=== PATIENT | female | born 2000 | race Caucasian/White ===

== ENCOUNTER 2021-08-19 10:15 | Outpatient (REF) | payer MEDICARE, MEDICAID, SELFPAY ==
--- NOTE | ~2021-08-19 | XR_ITS ---
EXAMINATION: XR CHEST CLINICAL INFORMATION: Asthma unspecified with acute exacerbation COMPARISON: None TECHNIQUE: 2 views of the chest were obtained. FINDINGS: No significant abnormality is noted involving the heart, lungs, mediastinum, bony thorax or soft tissues. XR/XR chest 2V IMPRESSION: Unremarkable examination.
[2021-08-19 15:02] LABS: Influenza A PCR NEGATIVE (Negative); Influenza B PCR NEGATIVE (Negative); Resp Syncy Virus RNA Qual PCR NEGATIVE (Negative); SARS COV2 PCR INHOUSE NEGATIVE (Negative)
== END 2021-08-19 10:16 | disposition home or self-care (01) ==
LOC: HO.HMGCX 10:15
PROVIDERS: PCP Student in an Organized Health Care Education/Training Program; Visit Provider Physician Assistant Medical
DX: Z20.822 Contact with and (suspected) exposure to COVID-19 (principal); J45.901 Unspecified asthma with (acute) exacerbation; R05.9 Cough, unspecified; J06.9 Acute upper respiratory infection, unspecified
CPT/HCPCS: 0241U; 36415; 71046

== ENCOUNTER 2023-09-08 14:04 | Outpatient (AMB) | payer OTHER, MEDICAID, SELFPAY ==
[2023-09-08 14:15] VITALS: BP 124/78; PULSE 70; O2SAT 99; BMI 29.9
--- NOTE | 2023-09-08 14:15 | MHC.PC.OV ---
Vital Signs 09/08/23 14:15 Height 5 ft 3 in Weight 169 lb 0.6 oz BMI 29.9 BP 124/78 Blood Pressure Location Lt brachial Position Sitting Pulse 70 Pulse Source Pulse Oximeter Pulse Oximetry (%) 99 Oxygen Delivery Method Room Air Intake Visit Reasons: [facility]/08-13/ Bilateral feet pain Intake Note: Patient is here to follow-up after a visit the emergency department at 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 Allergies Beef Containing Products [BEEF CONTAINING PRODUCTS] Allergy (Intermediate, Verified 09/08/23 14:27) SWELLING shrimp Allergy (Intermediate, Verified 09/08/23 14:27) SWELLING Latex, Natural Rubber Allergy (Mild, Verified 09/08/23 14:27) Rash enviromental Allergy (Intermediate, Uncoded 09/08/23 14:27) itch, hives Medication List - Last Reconciled 09/08/23 by ESTEBAN Fan albuterol sulfate 2.5 mg (3 mL) inhalation QID PRN fluticasone propionate 44 mcg/actuation (Flovent HFA) 1 puff PO BID 30 days hydrocortisone 1% (Cortisone (hydrocortisone)) 1 appl topical QID PRN levalbuterol tartrate 45 mcg/actuation 2 puffs inhalation Q4-6H PRN 30 days sertraline 50 mg PO DAILY Tobacco use date assessed: 09/08/23 Dental Screening Did you have a dental visit in the last 12 months?: Yes Did you have a dental problem in the last 6 months where you did not have access to dental care?: No Was dental information given to patient?: Patient has dentist HPI [facility]/08-13/ Bilateral feet pain HPI Details Patient is a 23-year-old female who presents today to follow-up after [facility] Emergency Department visit 08/13/2023 due to bilateral foot pain. Patient of Dr. Lemus. Patient presented to ED with bilateral foot pain right greater than left dorsal aspect with weight-bearing and walking. Patient had bilateral foot x-ray that were negative. Patient was advised to wear supportive shoes and follow-up with Podiatry. Patient is here for podiatry referral. Reports bilateral foot pain for the past 6 months, denies injury. [facility] Medical History Moderate asthma Mild major depression, single episode Surgical History No pertinent past surgical history Family History Mother Mental health disorder Schizophrenia Other Substance use disorder Social History Housing: Apartment Alcohol intake: never Patient Tobacco Use Status: Never used Tobacco e-Cigarette/Vaping Use: Never Used Second Hand Smoke Exposure: No service: No Current occupational status: unemployed Cognitive needs: No Hearing needs: No Vision needs: No Questionnaire Thrive Questionnaire Date Thrive assessed: 07/08/22 AUDIT C Alcohol Use Questionnaire (AUDIT-C) 1. How often do you have a drink containing alcohol?: Never 3. How often do you have six or more drinks on one occasion?: Never Total Score: 0 Score Reviewed/Action Taken: No UMAIR-7 AMB Questionnaire UMAIR-7 Date UMAIR - 7 assessed: 07/08/22 Source: Developed by Drs. Sanket Peguero, Yasmin Crane, Thanh Evans and colleagues, with an educational navid from [employer]. Review of Systems Const Denies body aches, Denies chills, Denies fever(s) and Denies headache(s) ENT Denies dizziness, Denies otalgia, Denies headache(s), Denies nasal discharge, Denies sinus pain and Denies sore throat Card Denies chest pain, Denies edema, Denies lightheadedness and Denies dyspnea Resp Denies cough, Denies dyspnea and Denies wheezing GI Denies abdominal pain Denies dysuria Musc Reports as per HPI and Denies myalgias Skin/Breast Denies rash Neuro Denies dizziness and Denies headache(s) Aller/Immun Denies wheezing Physical exam (Primary Care) Vital Signs: Last Vital Signs Pulse 70 09/08/23 14:15 BP 124/78 09/08/23 14:15 Pulse Ox 99 09/08/23 14:15 Oxygen Delivery Method Room Air 09/08/23 14:15 BMI result Body Mass Index 29.9 Tobacco/Smoking Status: Tobacco use Status Tobacco use date assessed 09/08/23 09/08/23 14:22 Patient Tobacco Use Status Never used Tobacco 09/08/23 14:15 e-Cigarette/Vaping Use Never Used 09/08/23 14:15 Thrive Assessment: Date of Thrive Assessment Date Thrive assessed 07/08/22 09/08/23 14:15 Const General: cooperative and no acute distress Orientation/consciousness: patient oriented x3 HENMT Head: Yes normocephalic and Yes atraumatic Throat: Yes posterior oropharynx normal Eyes General: appearance normal, both eyes and all related structures Neck Neck: Yes normal visual inspection and Yes full ROM Resp Effort & Inspection: normal respiratory effort and able to speak in complete sentences Auscultation: clear to auscultation bilaterally, no crackles, no rales, no rhonchi and no wheezes Cardio Rate: regular rate Rhythm: regular rhythm Heart sounds: S1 normal heart sound present and S2 normal heart sound present Peripheral pulses: dorsalis pedis present bilateral GI Auscultation: normal bowel sounds Skin General skin exam: no rashes or lesions noted Neuro General: patient oriented x3 Gait exam (Neuro): Normal gait present Extrem Other: Bilateral foot normal to inspection, blue nail [place] noted - unable to assess capillary refill, dorsal aspect tender to palpation, full range of motion, skin is intact General: Yes full ROM and No edema Assessment and Plan Assessment & Plan (1) Bilateral foot pain: Code(s): M79.671 - Pain in right foot; M79.672 - Pain in left foot Plan: See HPI for details. Podiatry referral for an evaluation and treatment. Patient can try [id number] ibuprofen 400 mg every 8 hours as needed. Elevate bilateral lower extremity. Encouraged supporting shoes. Patient agreed with the plan Orders: Referrals Podiatry Referral M79.671 - Pain in right foot, M79.672 - Pain in left foot Coding Level of Care Code Est Pt Level 3 (32445) Diagnoses Bilateral foot pain M79.671; M79.672
== END 2023-09-08 14:45 | disposition home or self-care (01) ==
PROVIDERS: PCP Internal Medicine; Visit Provider Nurse Practitioner Family
DX: M79.671 Pain in right foot (principal); M79.672 Pain in left foot
CPT/HCPCS: 99213

== ENCOUNTER 2024-01-13 14:22 | Outpatient (AMB) | payer OTHER, SELFPAY ==
--- NOTE | 2024-01-13 14:29 | MHC.PC.OV ---
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 Accompanied by: Friend Allergies Beef Containing Products [BEEF CONTAINING PRODUCTS] Allergy (Intermediate, Verified 01/13/24 14:46) SWELLING shrimp Allergy (Intermediate, Verified 01/13/24 14:46) SWELLING Latex, Natural Rubber Allergy (Mild, Verified 01/13/24 14:46) Rash enviromental Allergy (Intermediate, Uncoded 01/13/24 14:46) itch, hives Medication List - Last Reconciled 01/13/24 by Fariba Rasmussen MD albuterol sulfate 2.5 mg (3 mL) inhalation QID PRN clonidine HCl 0.1 mg PO BID fluticasone propionate 44 mcg/actuation (Flovent HFA) 1 puff PO BID 30 days fluvoxamine 50 mg PO DAILY levalbuterol tartrate 45 mcg/actuation 2 puffs inhalation Q4-6H PRN 30 days sertraline 50 mg PO DAILY Tobacco use date assessed: 01/13/24 Dental Screening Dental Screen Date: 01/13/24 Did you have a dental visit in the last 12 months?: Yes Did you have a dental problem in the last 6 months where you did not have access to dental care?: No Was dental information given to patient?: Patient has dentist HPI HPI Comments History of Present Illness Details This is a 23-year-old female with severe major depression follow by psychiatrist comes accompanied by seen a significant other for her physical exam. Has had suicidal thoughts but is closely follow by psychiatrist and will try a new medication soon. Declines Pap smear due to anxiety. No chest pain or shortness of breath. [facility] Medical History (Updated 01/13/24 @ 15:07 by Fariba Rasmussen MD) Moderate recurrent major depression Moderate asthma Mild major depression, single episode Surgical History No pertinent past surgical history Family History Mother Mental health disorder Schizophrenia Other Substance use disorder Social History Housing: Apartment Alcohol intake: never Patient Tobacco Use Status: Never used Tobacco e-Cigarette/Vaping Use: Never Used Second Hand Smoke Exposure: No service: No Current occupational status: unemployed Cognitive needs: No Hearing needs: No Vision needs: No Questionnaire PHQ-9 Over the last 2 weeks, how often have you been bothered by any of the following problems? 1. Little interest or pleasure in doing things: nearly every day 2. Feeling down, depressed, or hopeless: nearly every day 3. Trouble falling or staying asleep, or sleeping too much: more than half the days 4. Feeling tired or having little energy: nearly every day 5. Poor appetite or overeating: nearly every day 6. Feeling bad about yourself - or that you are a failure or have let yourself or your family down: nearly every day 7. Trouble concentrating on things, such as reading the newspaper or watching television: more than half the days 8. Moving or speaking so slowly that other people could have noticed. Or the opposite - being so fidgety or restless that you have been moving around a lot more than usual: more than half the days 9. Thoughts that you would be better off or of hurting yourself in some way: several days Total score: 22 Depression Screening Interpretation: Positive (has suicidal thoughts) Depression Screening Follow-up: Existing condition, In treatment, Community Mental Health Worker F/U and Follow-up Visit Requested Depression Screening Done: Yes 12185 - PHQ-9 Billing: Yes Source: Developed by Drs. Sanket Peguero, Yasmin Crane, Thanh Evans and colleagues, with an educational navid from [employer]. Thrive Questionnaire Date Thrive assessed: 01/13/24 I am a: Patient What is your living situation today?: I have a steady place to live Within the past 12 months, did the food you bought not last and you didn't have the money to get more?: Never true Within the past 12 months, did you worry whether your food would run out before you got money to buy more?: Never true Do you have trouble paying for medicines?: No Do you have trouble getting transportation to medical appointments?: No Do you have trouble paying your heating and electricity bill?: No Do you have trouble taking care of your child, family member or friend?: No Do you have trouble with day-to-day activities such as bathing, preparing meals, shopping, managing finances, etc.?: No Are you currently unemployed and looking for a job?: No Are you interested in more education?: No Please select the resources that you would like help with: None Currently or been in a relationship where the following occur: no concerns reported THRIVE Score: 0 AUDIT C Alcohol Use Questionnaire (AUDIT-C) 1. How often do you have a drink containing alcohol?: Never Total Score: 0 UMAIR-7 AMB Questionnaire UMAIR-7 Date UMAIR - 7 assessed: 01/13/24 Feeling nervous, anxious, or on edge: 3 = Nearly every day Not being able to stop or control worryin = More than half the days Worrying too much about different things: 3 = Nearly every day Trouble relaxin = Nearly every day Being so restless that it is hard to sit still: 3 = Nearly every day Becoming easily annoyed or irritable: 3 = Nearly every day Feeling afraid as if something awful might happen: 3 = Nearly every day Total UMAIR-7 score (0-4 normal; 5-9 mild; 10-14 moderate; 15-21 severe): 20 Source: Developed by Drs. Sanket Peguero, Yasmin Crane, Thanh Evans and colleagues, with an educational navid from [employer]. UMAIR-7 Assessment Billing UMAIR-7 Assessment Tool: UMAIR-7 Assessment 37656 Review of Systems Const All systems reviewed & are unremarkable except as noted in HPI and below Eyes Reports no additional complaints, Denies change in vision and Denies other visual disturbances Card Denies chest pain at rest, Denies chest pain with activity, Denies edema, Denies irregular heart rhythm, Denies claudication, Denies dyspnea, Denies dyspnea on exertion, Denies orthopnea, Denies paroxysmal nocturnal dyspnea and Denies slow heart rate Resp Denies cough, Denies dyspnea and Denies dyspnea on exertion GI Denies abdominal pain, Denies change in bowel habits, Denies excessive flatus, Denies nausea and Denies vomiting Denies urinary incontinence, Denies urinary hesitancy and Denies urinary urgency Musc Denies abnormal gait, Denies atrophy, Denies deformity and Denies limited range of motion Skin/Breast Denies bleeding lesions, Denies changing lesions and Denies rash Neuro Denies abnormal gait, Denies behavioral changes, Denies confusion and Denies lack of coordination Psych Denies behavioral changes and Denies confusion Physical exam (Primary Care) Vital Signs: Last Vital Signs BP 120/70 01/13/24 14:34 BMI result Body Mass Index 30.6 Tobacco/Smoking Status: Tobacco use Status Tobacco use date assessed 01/13/24 01/13/24 14:43 Patient Tobacco Use Status Never used Tobacco 01/13/24 14:30 e-Cigarette/Vaping Use Never Used 01/13/24 14:30 PHQ-9: PHQ-9 Score PHQ-9: Total score 22 01/13/24 14:43 Depression Screening Interpretation: Positive (has suicidal thoughts) Depression Screening Follow-up: Existing condition, In treatment, Community Mental Health Worker F/U and Follow-up Visit Requested Thrive Assessment: Date of Thrive Assessment Date Thrive assessed 01/13/24 01/13/24 14:43 Currently or been in a relationship where the following occur: no concerns reported Const General: No confusion Orientation/consciousness: patient oriented x3 and No confusion HENMT Head: Yes normal to inspection, Yes normocephalic and Yes atraumatic Ears: external ears normal Eyes General: appearance normal, both eyes and all related structures Eyelids: Yes eyelids normal Conjunctivae: conjunctivae normal Neck Neck: Yes normal visual inspection and Yes supple Resp Effort & Inspection: normal respiratory effort Auscultation: clear to auscultation bilaterally Cardio Jugular venous distension: no JVD Rate: regular rate Rhythm: regular rhythm Heart sounds: S1 normal heart sound present and S2 normal heart sound present GI Inspection: Yes normal to inspection Palpation (GI): Soft to palpation and nontender Auscultation: normal bowel sounds Skin General skin exam: no rashes or lesions noted Neuro General: patient oriented x3, no focal motor deficits and No confusion Extrem General: Yes full ROM Psych Appearance: grossly normal Affect: Sad affect present Attitude: cooperative Assessment and Plan Assessment & Plan (1) Physical exam: Code(s): Z00.00 - Encounter for general adult medical examination without abnormal findings Plan: Repeat in a year. (2) Severe major depression without psychotic features: Comment: Follow by psychiatrist at [facility] in [place]. Code(s): F32.2 - Major depressive disorder, single episode, severe without psychotic features Plan: Sertraline will be changed to fluvoxamine soon. Follow-up with psychiatry. Orders: Orders Rast Allergen Today T78.40XA - Allergy, unspecified, initial encounter Comprehensive [place]. Panel Fast Today Z00.00 - Encounter for general adult medical examination without abnormal findings Complete Blood Count Auto Diff Today N92.1 - Excessive and frequent menstruation with irregular cycle Lipid Panel Today Z00.00 - Encounter for general adult medical examination without abnormal findings Medications: Refilled levalbuterol tartrate 45 mcg/actuation 2 puffs inhalation Q4-6H 30 days PRN 15 grams 2RF shortness of breath Coding Level of Care Code Est Pt Prev Care 18-39y(82906) Diagnoses Physical exam Z00.00 Severe major depression without psychotic features F32.2 Additional Codes UMAIR-7 Assessment Billing - UMAIR-7 Assessment Tool: UMAIR-7 Assessment [id number] ([id number]) Time Spent (min) 31
[2024-01-13 14:34] VITALS: BP 120/70; BMI 30.6
== END 2024-01-13 15:09 | disposition home or self-care (01) ==
PROVIDERS: PCP Internal Medicine; Visit Provider Internal Medicine
DX: Z00.00 Encounter for general adult medical examination without abnormal findings (principal); F32.2 Major depressive disorder, single episode, severe without psychotic features
CPT/HCPCS: 99395